=== PATIENT | female | born 1970 | race Caucasian/White ===

== ENCOUNTER 2017-06-16 15:27 | Emergency (ER) | payer SELFPAY ==
--- NOTE | 2017-06-16 17:32 | RAD ---
INDICATION: Temporomandibular joint evaluate for dislocation. COMPARISON: There are no prior studies available for comparison. TECHNIQUE: Contiguous axial images of the temporal bones were obtained without contrast and reconstructed in the sagittal and coronal planes. FINDINGS: The bones are in normal alignment. There is no evidence for temporomandibular joint dislocation. Joint spaces appear maintained. No fracture is seen. The mastoid air cells and middle ear cavities appear clear. The paranasal sinuses are clear. IMPRESSION: NO EVIDENCE FOR ACUTE FINDING, IF THE PATIENT'S TEMPOROMANDIBULAR JOINT PAIN PERSISTS CONSIDER FOLLOW-UP OUTPATIENT MR IMAGING.
--- NOTE | 2017-06-16 18:27 | ED ---
Throat Pain/Nasal Congestion - HPI Summary HPI Summary: 47F presents with left sided jaw pain. It occurred after she yawned 4 days ago and then developed the pain. she has redness and swelling to area. She states her jaw feels out of place. She is able to close it and open it half way. She denies any dental pain. She denies any fevers. She denies any history of TMJ. She denies any history of locking or popping of her jaw. The pain is only on the one side of the neck. - History of Current Complaint Chief Complaint: EDFacialInjury Time Seen by Provider: 06/16/17 17:37 - Allergies/Home Medications Allergies/Adverse Reactions: Allergies Allergy/AdvReac Type Severity Reaction Status Date / Time BENADRYL Allergy Anxiety Uncoded 04/30/16 08:34 PMH/Surg Hx/FS Hx/Imm Hx Endocrine/Hematology History: Denies: Hx Anticoagulant Therapy Cardiovascular History: Denies: Hx Hypertension Musculoskeletal History: Reports: Other Musculoskeletal History - Patellar dislocation x 6 - Immunization History Date of Tetanus Vaccine: 04/2013 Infectious Disease History: No Infectious Disease History: Denies: Traveled Outside the [place] in Last 30 Days - Family History Known Family History: Positive: Cardiac Disease - Social History Alcohol Use: None Substance Use Type: Reports: None Smoking Status (MU): Never Smoked Tobacco Review of Systems Negative: Fever Positive: Other - left sided jaw pain Negative: Chest Pain Negative: Shortness Of Breath All Other Systems Reviewed And Are Negative: Yes Physical Exam Triage Information Reviewed: Yes Vital Signs On Initial Exam: Initial Vitals Temp Pulse Resp BP Pulse Ox 98 F 101 17 140/88 97 06/16/17 15:35 06/16/17 15:35 06/16/17 15:35 06/16/17 15:35 06/16/17 15:35 Vital Signs Reviewed: Yes Appearance: Positive: Well-Appearing Skin: Positive: Warm, Dry Head/Face: Positive: Other - swelling to left side of jaw Eyes: Positive: Normal, EOMI, KUN, Conjunctiva Clear ENT: Positive: Normal ENT inspection, Pharynx normal, TMs normal Dental: Negative: Percussion Tenderness @, Gross Decay/Caries @, Dental Fracture @, Abscess @ Neck: Positive: Supple, Nontender, No Lymphadenopathy Respiratory/Lung Sounds: Positive: Clear to Auscultation, Breath Sounds Present Cardiovascular: Positive: Normal, RRR - Arpit Coma Scale Coma Scale Total: 15 Diagnostics - Vital Signs Vital Signs Temp Pulse Resp BP Pulse Ox 06/16/17 15:35 98 F 101 17 140/88 97 - Laboratory Lab Statement: Any lab studies that have been ordered have been reviewed, and results considered in the medical decision making process. - CT maxillary CT Interpretation: No Acute Changes CT Interpretation Completed By: Radiologist EENT Course/Dx - Course Course Of Treatment: 47F presents with left sided jaw pain. It occurred after she yawned 4 days ago and then developed the pain. she has redness and swelling to area. She states her jaw feels out of place. She is able to close it and open it half way. She denies any dental pain. She denies any fevers. She denies any history of TMJ. She denies any history of locking or popping of her jaw. The pain is only on the one side of the neck. on exam some swelling to left TMJ joint. no dental pain. CT normal. discussed with dr santana and seems most like TMJ so will referral to oral surgery. patient understands and agrees with plan. - Differential Diagnoses Differential Diagnoses: Fracture, Other - TMJ, dislocation - Diagnoses Provider Diagnoses: Jaw pain Discharge - Discharge Plan Condition: Good Disposition: HOME Patient Education Materials: Temporomandibular Disorder (ED) Referrals: Live العلي MD [Doctor of Dental Medicine] - Gucci Correa MD [Doctor of Dental Medicine] - [facility] [place] [facility] [Outside] Additional Instructions: Take ibuprofen every 6 hours Take small bites Eat soft foods Follow up with oral surgery or dentist Return to ED if develop any new or worsening symptoms
[2017-06-16 18:41] VITALS: BP 122/74
== END 2017-06-16 18:40 | disposition home or self-care (01) ==
LOC: ED 15:27
DX: R68.84 Jaw pain (principal)
CPT/HCPCS: 70480; 99282

== ENCOUNTER 2017-11-06 10:02 | Emergency (ER) | payer SELFPAY ==
--- NOTE | 2017-11-06 10:34 | RAD ---
HISTORY: Chest pain COMPARISONS: None VIEWS: 1: frontal portable view of the chest at 10:20 AM FINDINGS: LINES AND TUBES: None. CARDIOMEDIASTINAL SILHOUETTE: The cardiomediastinal silhouette is normal for portable technique. PLEURA: The costophrenic angles are sharp. No pleural abnormalities are noted. LUNG PARENCHYMA: The lungs are clear. ABDOMEN: The upper abdomen is clear. There is no subphrenic gas. BONES AND SOFT TISSUES: No bone or soft tissue abnormalities are noted. IMPRESSION: NO ACTIVE CARDIOPULMONARY DISEASE.
[2017-11-06 10:43] LABS: ABS Basophils 0.1 10^3/ul (0-0.2); ABS Eosinophils 0.4 10^3/ul (0-0.6); ABS Lymphocytes 1.8 10^3/ul (1.0-4.8); ABS Monocytes 0.6 10^3/ul (0-0.8); ABS Neutrophils 11.8 10^3/ul (1.5-7.7); ABS Nucleated RBC 0 10^3/ul; Eosinophil % 2.5 % (0-6); Hematocrit 42 % (35-47); Hemoglobin 14.5 g/dl (12.0-16.0); Lymphocyte % 12.6 % (25-47); Mean Corpuscular HGB Conc 35 g/dl (31-36); Mean Corpuscular Hemoglobin 28 pg (27-31); Mean Corpuscular Volume 81 fL (80-97); Mean Platelet Volume 8 um3 (7.4-10.4); Nucleated Red Blood Cells % 0.1; Platelet Count 326 10^3/ul (150-450); Red Blood Count 5.14 10^6/ul (4.0-5.4); Red Cell Distribution Width 14 % (10.5-15); White Blood Count 14.7 10^3/ul (3.5-10.8)
[2017-11-06] MEDS ORDERED: Potassium Chlor TAB* 20 MEQ TAB.ER PO ONE (11:04)
[2017-11-06] MEDS: KCL 10 MEQ/50 ML IVPREMIX* 10 MEQ/50 ML BAG IV SCH ×2 (11:39→13:21)
[2017-11-06 15:30] VITALS: BP 113/71
--- NOTE | 2017-11-06 18:12 | ED ---
Julio Garland Thomas, scribed for Jesse Alonso MD on 11/06/17 at 1056 . HPI Chest Pain - HPI Summary HPI Summary: The patient is a 47 year old female complaining of upper chest pressure that began two days ago. The pain is rated 7/10. She also complains of a mental fog. The patient additionally complains of nausea and near-syncope. She describes a sensation of tingles in her right arm. - History of Current Complaint Chief Complaint: EDChestPainROMI Time Seen by Provider: 11/06/17 10:13 Hx Obtained From: Patient Onset/Duration: Started Days Ago - 2, Still Present Timing: Constant Current Severity: Moderate Pain Intensity: 7 Pain Scale Used: 0-10 Numeric Chest Pain Location: Discrete at: - upper chest Character: Pressure/Squeezing Aggravating Factor(s): Nothing Alleviating Factor(s): Nothing Associated Signs and Symptoms: Positive: Other: - mental "fog", near-syncope, nausea, tingles in right arm Related History: Obesity - Allergy/Home Medications Allergies/Adverse Reactions: Allergies Allergy/AdvReac Type Severity Reaction Status Date / Time diphenhydramine Allergy Anxiety Verified 11/06/17 11:18 Home Medications: Home Medications Ascorbic Acid TAB* [Vitamin C TAB*] 1,000 mg PO DAILY 11/06/17 [History Confirmed 11/06/17] Aspirin EC Low Dose* [Ecotrin EC Low Dose 81 MG*] 81 mg PO DAILY 11/06/17 [ History Confirmed 11/06/17] Cholecalciferol CAP/TAB(NF) [Vitamin D3 CAP/TAB (NF)] 5,000 unit PO DAILY [History Confirmed 11/06/17] Multivitamins/Minerals TAB* [Theragran/minerals TAB*] 1 tab PO DAILY 11/06/17 [ History Confirmed 11/06/17] PMH/Surg Hx/FS Hx/Imm Hx Endocrine/Hematology History: Denies: Hx Anticoagulant Therapy Cardiovascular History: Denies: Hx Hypertension Musculoskeletal History: Reports: Other Musculoskeletal History - Patellar dislocation x 6 - Immunization History Date of Tetanus Vaccine: 04/2013 Infectious Disease History: No Infectious Disease History: Denies: Traveled Outside the [place] in Last 30 Days - Family History Known Family History: Positive: Cardiac Disease - Social History Alcohol Use: Rare Hx Substance Use: No Substance Use Type: Reports: None Hx Tobacco Use: Yes Smoking Status (MU): Light Every Day Tobacco Smoker Review of Systems Negative: Fever Positive: Chest Pain Positive: Nausea Neurological: Other - Mental "fog", near-syncope, tinglings in right arm All Other Systems Reviewed And Are Negative: Yes Physical Exam - Summary Physical Exam Summary: VITAL SIGNS: Reviewed. GENERAL: Patient is a well-developed and nourished female who is lying comfortable in the stretcher. Patient is not in any acute respiratory distress. HEAD AND FACE: No signs of trauma. No ecchymosis, hematomas or skull depressions. No sinus tenderness. EYES: PERRLA, EOMI x 2, No injected conjunctiva, no nystagmus. EARS: Hearing grossly intact. Ear canals and tympanic membranes are within normal limits. MOUTH: Oropharynx within normal limits. NECK: Supple, trachea is midline, no adenopathy, no JVD, no carotid bruit, no c- spine tenderness, neck with full ROM. CHEST: Symmetric, no tenderness at palpation LUNGS: Clear to auscultation bilaterally. No wheezing or crackles. CVS: Regular rate and rhythm, S1 and S2 present, no murmurs or gallops appreciated. ABDOMEN: Soft, non-tender. No signs of distention. No rebound no guarding, and no masses palpated. Bowel sounds are normal. EXTREMITIES: FROM in all major joints, no edema, no cyanosis or clubbing. NEURO: Alert and oriented x 3. No acute neurological deficits. Speech is normal and follows commands. SKIN: Dry and warm Triage Information Reviewed: Yes Vital Signs On Initial Exam: Initial Vitals Temp Pulse Resp BP Pulse Ox 99.6 F 110 18 159/83 97 11/06/17 10:04 11/06/17 10:04 11/06/17 10:04 11/06/17 10:04 11/06/17 10:04 Vital Signs Reviewed: Yes Diagnostics - Vital Signs Vital Signs Temp Pulse Resp BP Pulse Ox 11/06/17 10:30 77 20 132/80 96 11/06/17 10:15 95 143/69 97 11/06/17 10:13 103 97 11/06/17 10:04 99.6 F 110 18 159/83 97 - Laboratory Lab Results: Lab Results 11/06/17 Range/Units 10:29 WBC 14.7 H (3.5-10.8) 10^3/ul RBC 5.14 (4.0-5.4) 10^6/ul Hgb 14.5 (12.0-16.0) g/dl Hct 42 (35-47) % MCV 81 (80-97) fL MCH 28 (27-31) pg MCHC 35 (31-36) g/dl RDW 14 (10.5-15) % Plt Count 326 (150-450) 10^3/ul MPV 8 (7.4-10.4) um3 Neut % (Auto) 80.1 (38-83) % Lymph % (Auto) 12.6 L (25-47) % [place] % (Auto) 4.2 (1-9) % Eos % (Auto) 2.5 (0-6) % Baso % (Auto) 0.6 (0-2) % Absolute Neuts (auto) 11.8 H (1.5-7.7) 10^3/ul Absolute Lymphs (auto) 1.8 (1.0-4.8) 10^3/ul Absolute Monos (auto) 0.6 (0-0.8) 10^3/ul Absolute Eos (auto) 0.4 (0-0.6) 10^3/ul Absolute Basos (auto) 0.1 (0-0.2) 10^3/ul Absolute Nucleated RBC 0 10^3/ul Nucleated RBC % 0.1 Result Diagrams: 11/06/17 10:29 11/06/17 14:25 Lab Statement: Any lab studies that have been ordered have been reviewed, and results considered in the medical decision making process. - Radiology CXR Xray Interpretation: No Acute Changes - NO ACTIVE CARDIOPULMONARY DISEASE. Dr. Alonso has reviewed this report. Radiology Interpretation Completed By: Radiologist - EKG 10:19 Cardiac Rate: NL EKG Rhythm: Sinus Rhythm - at 76 BPM EKG Interpretation: No ST elevations. Chest Pain Course/Dx - Course Assessment/Plan: The patient is a 47 year old female complaining of upper chest pressure that began two days ago. The pain is rated 7/10. She also complains of a mental fog. The patient additionally complains of nausea and near-syncope. She describes a sensation of tingles in her right arm. Test results are without significant abnormalities except WBC 14.7, potassium 2.6. Two troponins four hours apart are 0.00. CXR shows no active cardiopulmonary disease. In the ED course, the patient was given potassium chloride PO and IV. The patients potassium increased to 3.4. Since the patient is feeling better, I will discharge the patient home to follow up with primary care. The patient is hemodynamically stable and alert and oriented x 3. - Chest Pain Differential Diagnosis/HQI/PQRI: Acute OK, ACS, Angina, CHF, Chest Wall, GI Disease, Lower Respiratory Infection - Diagnoses Provider Diagnoses: Hypokalemia, Atypical chest pain Discharge - Discharge Plan Condition: Stable Disposition: HOME Prescriptions: Potassium Chlor TAB* [Klor Con ER TAB 10 MEQ*] 10 meq PO DAILY #4 tab.er Patient Education Materials: Chest Pain (ED), Hypokalemia (ED) Referrals: [facility] [place] [facility] [place] [place]] - 3 Days Additional Instructions: Follow up with your primary care physician in three days. If you do not have a primary care provider, you can use the [facility] [place] to find one and make an appointment. Return to the emergency department for any new or worsening symptoms. The documentation as recorded by the Julio condon Thomas accurately reflects the service I personally performed and the decisions made by , Jesse Alonso MD.
== END 2017-11-06 15:28 | disposition home or self-care (01) ==
LOC: ED 10:02
DX: R07.89 Other chest pain (principal); E87.6 Hypokalemia; F17.200 Nicotine dependence, unspecified, uncomplicated; Z88.8 Allergy status to other drugs, medicaments and biological substances
CPT/HCPCS: 36415; 71045; 80053; 82550; 82553; 83605; 83735; 83880; 84132; 84443; 84484; 85025; 93005; 96365; 96367; 99282; A9270-GY; J3480